=== PATIENT | male | born 1985 | race Caucasian/White ===

== ENCOUNTER 2017-01-04 10:31 | Emergency (ER) | payer SELFPAY ==
[~2017-01-04] VITALS: Ht 175.3 cm; Wt 113.0 kg
[2017-01-04 10:36] VITALS: BP 129/92; PULSE 109; RESP 16; TEMP 98.6; O2SAT 100
[2017-01-04 11:33] LABS: AUTOMATED NEUTROPHIL # 2.1 TH/MM3 (1.8-7.7); BASOPHIL # 0.1 TH/MM3 (0-0.2); EOSINOPHIL # 0.2 TH/MM3 (0-0.4); HEMATOCRIT 38.9 % (39.0-51.0); HEMO FLAGS DIFF FINAL; LYMPH % 42.6 % (9.0-44.0); LYMPHOCYTE # 2.1 TH/MM3 (1.0-4.8); MEAN CELL VOLUME 91.6 FL (80.0-100.0); MEAN CORPUSCULAR HEMOGLOBIN 31.8 PG (27.0-34.0); MEAN CORPUSCULAR HGB CONC 34.7 % (32.0-36.0); MONO % 9.2 % (0.0-8.0); NEUT % 42.2 % (16.0-70.0); PLATELET COUNT 104 TH/MM3 (150-450); RED BLOOD COUNT 4.24 MIL/MM3 (4.50-5.90); RED CELL DISTRIBUTION WIDTH 15.5 % (11.6-17.2); WHITE BLOOD COUNT 4.9 TH/MM3 (4.0-11.0)
[2017-01-04 11:55] LABS: ALKALINE PHOSPHATASE 72 U/L (45-117); ALT (GPT) 80 U/L (12-78); ANION GAP 11 MEQ/L (5-15); AST (GOT) 117 U/L (15-37); BICARBONATE 28.5 MEQ/L (21.0-32.0); BLOOD UREA NITROGEN 5 MG/DL (7-18); CHLORIDE 104 MEQ/L (98-107); GLOMERULAR FILTRATION RATE 134 ML/MIN (>89); SODIUM (NA) 143 MEQ/L (136-145); TOTAL BILIRUBIN ADULT 0.3 MG/DL (0.2-1.0)
[2017-01-04 11:59] LABS: ALCOHOL 402 MG/DL (0-5)
[2017-01-04 12:01] LABS: POTASSIUM 2.7 MEQ/L (3.5-5.1)
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
[2017-01-04] MEDS ORDERED: POTASSIUM CHLORIDE 20 MEQ CONTROLLED RELEASE TAB PO ONE (12:15)
[2017-01-04] MEDS ORDERED: POTASSIUM CHLOR 10 MEQ PREMIX 100 ML IV ONE (12:15)
[2017-01-04] MEDS ORDERED: POTA1TAB4 PO (12:22)
[2017-01-04 12:58] VITALS: BP 123/70; PULSE 111; RESP 16; O2SAT 98
[2017-01-04 15:36] VITALS: BP 142/75; PULSE 98; RESP 16; O2SAT 100
[2017-01-04] MEDS ORDERED: AMLO10TA2 PO (16:42)
[2017-01-04] MEDS ORDERED: VITA1000 PO (16:43)
[2017-01-04] MEDS ORDERED: NEUR800T PO (16:44)
[2017-01-04] MEDS ORDERED: [UNRECOGNIZED DRUG - OTHER] PO (16:47)
[2017-01-04] MEDS ORDERED: ACYC400T PO (16:56)
[2017-01-04] MEDS ORDERED: LORazepam 1 MG TAB PO PRN (18:15)
[2017-01-04] MEDS ORDERED: LORazepam 2 MG TAB PO PRN (18:15)
[2017-01-04] MEDS ORDERED: FLUMAZENIL 0.5 MG/5 ML VIAL IV PUSH PRN (18:15)
[2017-01-04] MEDS ORDERED: LORazepam 2 MG/ML VIAL IV PUSH PRN ×4 (18:15)
[2017-01-04] MEDS ORDERED: LEVE500T8 PO (18:46)
[2017-01-04] MEDS ORDERED: NAPR500T PO (18:48)
[2017-01-04] MEDS ORDERED: ARTIDRO EACH EYE (18:52)
[2017-01-04] MEDS ORDERED: TRIMSOL EACH EYE (18:53)
[2017-01-04 18:55] VITALS: BP 135/93; PULSE 101; RESP 18; TEMP 98; O2SAT 95
[2017-01-04] MEDS ORDERED: GABAPENTIN 400 MG CAP PO STA (21:36)
[2017-01-04] MEDS ORDERED: ONDANSETRON ODT 4 MG TAB PO ONE (21:45)
[2017-01-04 22:14] VITALS: BP 175/92; PULSE 150; RESP 19; TEMP 99.2; O2SAT 98
[2017-01-05 02:00] VITALS: BP 149/103; PULSE 117; RESP 17; TEMP 99.6; O2SAT 97
[2017-01-05 06:20] VITALS: BP 145/90; PULSE 120; RESP 20
[2017-01-05] MEDS ORDERED: POTASSIUM CHLORIDE 20 MEQ CONTROLLED RELEASE TAB PO ONE (08:00)
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
--- NOTE | 2017-01-05 09:42 | PD ---
Physical Exam Time Seen by Provider: 09:40 VANIA Stratton, has evaluated the patient and the patient will be discharged home to follow up at [facility] for detox. Data Data Last Documented VS Vital Signs Date Time Temp Pulse Resp B/P (MAP) Pulse Ox O2 Delivery O2 Flow Rate FiO2 01/05/17 06:20 120 20 145/90 (108) 01/05/17 02:00 99.6 97 Room Air 01/04/17 12:58 2.00 Orders Orders Complete Blood Count With Diff (01/04/17 10:52) Comprehensive Metabolic Panel (01/04/17 10:52) Psych Screen (01/04/17 10:52) Drug Screen, Random Urine (01/04/17 10:52) Alcohol (Ethanol) (01/04/17 10:52) Potassium Chlor 10 Meq Premix (Kcl 10 Me (01/04/17 12:15) Potassium Chloride (Kcl) (01/04/17 12:15) Ecg Monitoring (01/04/17 12:13) Alcohol Withdrawal Asmt-Ciwa ONCE (01/04/17 18:07) Flumazenil Inj (Romazicon Inj) (01/04/17 18:15) Lorazepam (Ativan) (01/04/17 18:15) Lorazepam Inj (Ativan Inj) (01/04/17 18:15) Lorazepam (Ativan) (01/04/17 18:15) Lorazepam Inj (Ativan Inj) (01/04/17 18:15) Lorazepam Inj (Ativan Inj) (01/04/17 18:15) Lorazepam Inj (Ativan Inj) (01/04/17 18:15) Gabapentin (Neurontin) (01/04/17 21:36) Amlodipine (Norvasc) (01/04/17 21:45) Potassium Chloride (Kcl) (01/05/17 08:00) Ondansetron Odt (Zofran Odt) (01/04/17 21:45) Diet Regular Basic (01/05/17 Breakfast) Labs Laboratory Tests Test 01/04/17 10:50 01/04/17 14:00 White Blood Count 4.9 TH/MM3 Red Blood Count 4.24 MIL/MM3 Hemoglobin 13.5 GM/DL Hematocrit 38.9 % Mean Corpuscular Volume 91.6 FL Mean Corpuscular Hemoglobin 31.8 PG Mean Corpuscular Hemoglobin Concent 34.7 % Red Cell Distribution Width 15.5 % Platelet Count 104 TH/MM3 Mean Platelet Volume 7.9 FL Neutrophils (%) (Auto) 42.2 % Lymphocytes (%) (Auto) 42.6 % Monocytes (%) (Auto) 9.2 % Eosinophils (%) (Auto) 5.0 % Basophils (%) (Auto) 1.0 % Neutrophils # (Auto) 2.1 TH/MM3 Lymphocytes # (Auto) 2.1 TH/MM3 Monocytes # (Auto) 0.5 TH/MM3 Eosinophils # (Auto) 0.2 TH/MM3 Basophils # (Auto) 0.1 TH/MM3 CBC Comment DIFF FINAL Differential Comment Blood Urea Nitrogen 5 MG/DL Creatinine 0.68 MG/DL Random Glucose 104 MG/DL Total Protein 6.5 GM/DL Albumin 3.2 GM/DL Calcium Level 8.1 MG/DL Alkaline Phosphatase 72 U/L Aspartate Amino Transf (AST/SGOT) 117 U/L Alanine Aminotransferase (ALT/SGPT) 80 U/L Total Bilirubin 0.3 MG/DL Sodium Level 143 MEQ/L Potassium Level 2.7 MEQ/L Chloride Level 104 MEQ/L Carbon Dioxide Level 28.5 MEQ/L Anion Gap 11 MEQ/L Estimat Glomerular Filtration Rate 134 ML/MIN Ethyl Alcohol Level 402 MG/DL Urine Opiates Screen NEG Urine Barbiturates Screen NEG Urine Amphetamines Screen NEG Urine Benzodiazepines Screen NEG Urine Cocaine Screen NEG Urine Cannabinoids Screen POS MDM Supervised Visit with ADENIKE: No Narrative Course VANIA Echavarria has evaluated the patient, lifted the Alves act and the patient will be discharged home. Patient contracts safety. Denies suicidal or homicidal ideations. Patient will be provided community resource packet to [facility]/ [facility] for follow-up. Patient verbalizes he will follow-up [facility] for detox. Has friends and family for support. Patient is medically cleared for discharge. Diagnosis Primary Impression: Alcohol dependence with acute alcoholic intoxication Qualified Codes: F10.220 - Alcohol dependence with intoxication, uncomplicated Additional Impression: Hypokalemia Ruled Out: Suicidal ideation Referrals: [facility] (Out patient) [facility] Primary Care Physician Psychiatrist Siobhan [facility] Patient Instructions: General Instructions Departure Forms: Tests/Procedures Additional Instruction: As discussed, your potassium level was low. Take medication as prescribed and follow up closely with primary care physician for outpatient potassium recheck. Contract safety to your self and others Stop using drugs Follow-up with psychiatry Follow-up with primary care provider Follow-up with [facility] Return to the emergency department immediately with worsening of symptoms Med/Other Pt SpecificInfo: Prescription(s) given Scripts Potassium Chloride ER (Potassium Chloride ER) 20 Meq Tab 20 MEQ PO BID for Electrolyte Replacement for 3 Days, #6 TAB 0 Refills Prov: Vita Crowley 01/05/17 Disposition: 01 DISCHARGE HOME Condition: Stable Vita Crowley Jan 05, 2017 09:42
[2017-01-05] MEDS ORDERED: POTA-163 PO (09:49)
[2017-01-05 09:50] VITALS: BP 140/86; TEMP 98
== END 2017-01-05 09:54 | disposition home or self-care (01) ==
LOC: NEPC 10:31 → NEPJ 01-05 09:54
DX: F10.220 Alcohol dependence with intoxication, uncomplicated (principal); E87.6 Hypokalemia; F12.90 Cannabis use, unspecified, uncomplicated; Y90.8 Blood alcohol level of 240 mg/100 ml or more; Z72.0 Tobacco use; Z79.899 Other long term (current) drug therapy
CPT/HCPCS: 80053; 80307; 85025; 96372; 96374; 99284; J2060; J3480